=== PATIENT | male | born 1950 | race Caucasian/White ===

== ENCOUNTER → 2017-01-13 | Outpatient (CLI) | payer OTHER ==
[~2017-01-13] MED LIST: GADOBUTROL 10 ML VIAL IVP ONE
== END ==
LOC: FIMAGING 12:06
PROVIDERS: ATTEND Physician Assistant Medical
DX: I72.3 Aneurysm of iliac artery (principal); I71.2 Thoracic aortic aneurysm, without rupture
CPT/HCPCS: A9585; C8902; C8909

== ENCOUNTER → 2017-08-15 | Outpatient (CLI) | payer OTHER | LOC: FIMAGING 18:37 | PROVIDERS: ATTEND Urology | DX: Z03.89 Encounter for observation for other suspected diseases and conditions ruled out (principal); M99.82 Other biomechanical lesions of thoracic region | CPT/HCPCS: A9585 ==

== ENCOUNTER 2017-12-19 19:03 | Emergency (ER) | payer OTHER ==
[2017-12-19 19:08] VITALS: BP 139/93
--- NOTE | 2017-12-19 19:27 | EDPHY ---
H & P Stated Complaint: Pt saw lines for 30mins then resolved was see at [facility] Time Seen by Provider: 12/19/17 19:13 HPI/ROS: CHIEF COMPLAINT: Vision changes HISTORY OF PRESENT ILLNESS: Patient is a 67-year-old healthy man who presents to the emergency department stating that about 5:30 when he got out of a hot shower he noticed some vision changes. He states that it was similar to the after effects of looking at a bright light but it persisted for about 30 min. He also describes it is looking through shards of broken glass similar to a kaleidoscope but not different colors. He did not feel lightheaded or dizzy. No chest pain or shortness of breath. He states that it was in both eyes because he tried covering them each 1 at a time. It was central rather than peripheral. He does not wear glasses or contacts. He is now completely resolved. REVIEW OF SYSTEMS: Constitutional: denies: chills, fever, recent illness, recent injury EENTM: See HPI Respiratory: denies: cough, shortness of breath Cardiac: denies: chest pain, irregular heart rate, lightheadedness, palpitations Gastrointestinal/Abdominal: denies: abdominal pain, diarrhea, nausea, vomiting, blood streaked stools Genitourinary: denies: dysuria, frequency, hematuria, pain Musculoskeletal: denies: joint pain, muscle pain Skin: denies: lesions, rash, jaundice, bruising Neurological: denies: headache, numbness, paresthesia, tingling, dizziness, weakness Hematologic/Lymphatic: denies: blood clots, easy bleeding, easy bruising Immunologic/allergic: denies: HIV/AIDS, transplant EXAM: GENERAL: Well-appearing, well-nourished and in no acute distress. HEAD: Atraumatic, normocephalic. EYES: Pupils equal round and reactive to light, extraocular movements intact, sclera anicteric, conjunctiva are normal. Normal retina seen on panoptic exam, no ischemia or congestion. intra-ocular pressure of 10 and 12 measured with tonometer. Visual acuity 20/20 in each eye. No visible abrasions or foreign bodies. ENT: TMs normal, nares patent, oropharynx clear without exudates. Moist mucous membranes. NECK: Normal range of motion, supple without lymphadenopathy or JVD. LUNGS: Breath sounds clear to auscultation bilaterally and equal. No wheezes rales or rhonchi. HEART: Regular rate and rhythm without murmurs, rubs or gallops. ABDOMEN: Soft, nontender, normoactive bowel sounds. No guarding, no rebound. No masses appreciated. BACK: No CVA tenderness, no spinal tenderness, step-offs or deformities EXTREMITIES: Normal range of motion, no pitting or edema. No clubbing or cyanosis. NEUROLOGICAL: Cranial nerves II through XII grossly intact. Normal speech, normal gait. 5/5 strength, normal movement in all extremities, normal sensation PSYCH: Normal mood, normal affect. SKIN: Warm, dry, normal turgor, no visible rashes or lesions. Source: Patient Exam Limitations: No limitations - Personal History Current Tetanus/Diphtheria Vaccine: Yes Current Tetanus Diphtheria and Acellular Pertussis (TDAP): Yes - Medical/Surgical History Hx Asthma: No Hx Chronic Respiratory Disease: No Hx Diabetes: No Hx Cardiac Disease: No Hx Renal Disease: No Hx Cirrhosis: No Hx Alcoholism: No Hx HIV/AIDS: No Hx Splenectomy or Spleen Trauma: No Other PMH: PMH: inguinal aneurysm, right ankle reconstruction, kidney tumor removal, - Family History Significant Family History: No pertinent family hx - Social History Smoking Status: Never smoked Alcohol Use: Sober Drug Use: None Constitutional: Initial Vital Signs Temperature (C) 37.0 C 12/19/17 19:05 Heart Rate 89 12/19/17 19:05 Respiratory Rate 16 12/19/17 19:05 Blood Pressure 139/93 H 12/19/17 19:05 O2 Sat (%) 96 12/19/17 19:05 O2 Delivery Mode Room Air Allergies/Adverse Reactions: No Known Allergies Allergy (Verified 12/19/17 19:08) Home Medications: Medication Instructions Recorded Allopurinol [Allopurinol 300 MG 300 mg PO DAILY 05/21/12 (RX)] Aspirin [Aspirin 81mg (*)] 81 mg PO DAILY 05/21/12 Losartan Potassium [Cozaar 50 mg 100 mg PO DAILY 05/21/12 (*)] Metoprolol Succinate 50 mg PO DAILY 05/21/12 Sildenafil Citrate [Viagra 50 MG 50 mg PO PRN PRN 05/21/12 (*)] Medical Decision Making ED Course/Re-evaluation: Patient has a normal eye exam including retina and intra-ocular pressure exams. He does not have any focal deficits. No description consistent with amaurosis fugax. I will page Ophthalmology for consultation. 7:40 p.m. I spoke with Dr. Glynn Stoner from Ophthalmology. He suspects that this is a migraine. He does not recommend any imaging. We also discussed with the patient that this could be presyncope. He states that he has had similar symptoms to that before. I will have him follow up with his primary. He declines further workup or testing at this time and feels reassured. Differential Diagnosis: Partial list of the Differential diagnosis considered include but were not limited to; pre syncope, migraine and although unlikely based on the history and physical exam, I also considered dissection, ischemia, hemorrhage. I discussed these differential diagnoses and the plan with the patient as well as the usual and expected course. The patient understands that the diagnosis is provisional and that in medicine we are not always correct and that further workup is often warranted. Usual and customary warnings were given. All of the patient's questions were answered. The patient was instructed to return to the emergency department should the symptoms at all worsen or return, otherwise to followup with the physician as we discussed. Departure - Departure Disposition: Home, Routine, Self-Care Clinical Impression: Vision changes, Ocular migraine Condition: Good Instructions: Ocular Migraine (ED) Referrals: NONE *PRIMARY CARE P,. [Primary Care Provider] - As per Instructions Glynn Stoner MD [Medical Doctor] - As per Instructions
== END 2017-12-19 19:50 | disposition home or self-care (01) ==
DX: H53.9 Unspecified visual disturbance (principal); G43.819 Other migraine, intractable, without status migrainosus; Z79.82 Long term (current) use of aspirin

== ENCOUNTER → 2018-05-11 | Outpatient (CLI) | payer OTHER | LOC: FIMAGING 13:05 | PROVIDERS: ATTEND Urology | DX: N20.0 Calculus of kidney (principal); N28.1 Cyst of kidney, acquired; Z85.528 Personal history of other malignant neoplasm of kidney ==